=== PATIENT | male | born 1960 | race Two or more races ===

== ENCOUNTER 2022-07-11 07:20 | Inpatient (IN) | payer MEDICAID ==
[~2022-07-11] VITALS: Ht 177.8 cm; Wt 94.1 kg
[~2022-07-11 07:20] MED LIST: HYDR-4383 PO; ONDA8TAB9 PO
[2022-07-11 08:08] LABS: BASOPHILS % (AUTO) 0.2 % (0-1); EOSINOPHILS % (AUTO) 0 % (0-6); HEMATOCRIT 46.4 % (42.0-52.0); HEMOGLOBIN 15.9 g/dl (14.0-17.9); LYMPHOCYTES # (AUTO) 0.9 X10'3 (1.1-4.8); LYMPHOCYTES % (AUTO) 6.7 % (21-51); MEAN CORPUSCULAR HEMOGLOBIN 29.9 PG (27.0-31.0); MEAN CORPUSCULAR HGB CONC 34.4 g/dL (33.0-36.5); MEAN CORPUSCULAR VOLUME 86.8 FL (78-98); MEAN PLATELET VOLUME 6.4 FL (7.4-10.4); MONOCYTES # (AUTO) 0.7 X10'3 (0-0.9); NEUTROPHILS # (AUTO) 12.2 X10'3 (1.8-7.7); NEUTROPHILS % (AUTO) 88.1 % (42-75); PLATELET COUNT 186 X10'3 (140-440); RED BLOOD COUNT 5.34 X10'6 (4.70-6.10); RED CELL DISTRIBUTION WIDTH 13.3 % (11.5-14.5); WHITE BLOOD COUNT 13.8 X10'3 (4.5-11.0)
[2022-07-11 08:20] LABS: ALANINE AMINOTRANSFERASE 23 U/L (12-78); ALKALINE PHOSPHATASE 91 IU/L (46-116); ANION GAP 8 (8-16); ASPARTATE AMINO TRANSFERASE 24 U/L (10-37); BILIRUBIN,TOTAL 0.6 MG/DL (0.1-1.0); BLOOD UREA NITROGEN 17 MG/DL (7-18); BUN/CREATININE RATIO 16.8 (5.4-32.0); CALCIUM 8.7 MG/DL (8.5-10.1); CHLORIDE 105 MMOL/L (99-107); CREATININE 1.01 MG/DL (0.60-1.10); GLUCOSE 135 MG/DL (70-104); LIPASE 198 U/L (73-393); POTASSIUM 3.7 MMOL/L (3.5-5.1); SODIUM 136 MMOL/L (135-145); TOTAL CARBON DIOXIDE 22.6 MMOL/L (24-32); TOTAL PROTEIN 7.9 G/DL (6.4-8.2); eGFR 75 ML/MIN
[2022-07-11 13:03] LABS: CLARITY,URINE CLEAR (Clear); GLUCOSE, URINE NEGATIVE (Neg); KETONES,URINE 40 mg/dl (Neg); LEUKOCYTE ESTERASE ,URINE NEGATIVE (Neg); NITRITES, URINE NEGATIVE (Neg); OCCULT BLOOD,URINE MODERATE (Neg); PROTEIN,URINE NEGATIVE (Neg); UROBILINOGEN,URINE 0.2 E.U/dL (0.2-1.0)
[2022-07-11 13:17] LABS: COLOR,URINE DARK YELLOW (Yellow); UA COLLECTION TYPE CLN CATCH MIDSTREAM
[2022-07-11 13:24] LABS: BACTERIA,URINE NONE SEEN /HPF (Neg); MUCUS STRANDS MANY /LPF (Neg); RBC,URINE 0-2 /HPF (0-2); SPERM FEW /HPF (NEGATIVE); SQUAMOUS EPITHELIAL CELL,UR FEW /LPF (FEW); WBC,URINE 0-4 /HPF (0-4)
[2022-07-11] MEDS ORDERED: morphine 4 MG/ML inj SYRINge IV PRN (18:00)
[2022-07-11] MEDS ORDERED: normal saline 1000ML IV soln IVB ONE (18:00)
[2022-07-11] MEDS ORDERED: ondansetron/PF 4mg/2ml inj IV ONE (18:00)
[2022-07-11] MEDS ORDERED: piperacillin/tazo 3.375gm/50ml 50 ML IV ONE (18:10)
[2022-07-11] MEDS ORDERED: temazepam 15mg capsule PO PRN (21:00)
--- NOTE | 2022-07-11 21:27 | NUR ---
ULTRASOUND PAGED AT [phone]
[2022-07-11] MEDS ORDERED: ondansetron/PF 4mg/2ml inj IV PRN (22:20)
[2022-07-11] MEDS ORDERED: magnesium hydroxide 30ml (MOM) UD suspension PO PRN (22:20)
[2022-07-11] MEDS ORDERED: potassium Cl 20 mEq SR tablet PO PRN ×2 (22:20)
[2022-07-11] MEDS ORDERED: bisacodyl 10mg suppository rectal RC PRN (22:20)
[2022-07-11] MEDS ORDERED: HYDROcodone/acetaminophen 5mg/325mg tablet PO PRN (22:20)
[2022-07-11] MEDS ORDERED: acetaminophen 325mg tablet PO PRN ×2 (22:20)
[2022-07-11] MEDS ORDERED: potassium Cl 40MEQ/1/2NS 520ml 520 ML IV PRN (22:20)
[2022-07-11] MEDS ORDERED: HYDROmorphone inj. 0.5 MG/0.5 ML DISP.SYRIN IV PRN (22:20)
[2022-07-11] MEDS ORDERED: ondansetron 4mg rapidly disintigrating tab PO PRN (22:20)
[2022-07-11] MEDS ORDERED: diphenhydrAMINE 50 mg/ml inj IV PRN (22:20)
[2022-07-11] MEDS ORDERED: mag hydrox/Alum hydrox/simeth 30ml oral suspension PO PRN (22:20)
[2022-07-11] MEDS ORDERED: morphine 2 MG/ML inj. syringe IV PRN ×2 (22:20)
[2022-07-11] MEDS ORDERED: acetaminophen 650mg rectal suppository RC PRN (22:20)
[2022-07-11] MEDS ORDERED: diphenhydrAMINE 25mg capsule PO PRN (22:20)
[2022-07-11 22:58] LABS: APTT 31 SECONDS (22-32)
[2022-07-11 23:05] LABS: PHOSPHORUS 2.1 MG/DL (2.3-4.5)
[2022-07-12] VITALS (15 sets, daily range): BP systolic 112–156; BP diastolic 60–87
[2022-07-12] MEDS: potassium Cl 20mEq in NS 1,000 ML IV SCH ×3 (01:16→18:20)
[2022-07-12] MEDS: piperacillin/tazo 3.375gm/50ml 50 ML IV SCH ×3 (02:35→18:00)
--- NOTE | 2022-07-12 05:19 | NUR ---
Daughter contact info : Alana
--- NOTE | 2022-07-12 06:45 | NUR ---
Received patient to room 344A. Patient is alert and oriented x4 with c/o pain 8/10 to right abd. Oriented patient to room and call light. Call light placed within patient's reach.
[2022-07-12] MEDS: HYDROcodone/acetaminophen 10/325mg tab PO PRN (06:49)
[2022-07-12] MEDS: K and/or MAG REPLACEMENT MC SCH ×2 (08:00→20:00)
[2022-07-12 08:51] LABS: HEMATOCRIT 41.1 % (42.0-52.0); HEMOGLOBIN 14.1 g/dl (14.0-17.9); LYMPHOCYTES % (AUTO) 4.3 % (21-51); MEAN CORPUSCULAR HEMOGLOBIN 29.7 PG (27.0-31.0); MEAN CORPUSCULAR HGB CONC 34.4 g/dL (33.0-36.5); MEAN CORPUSCULAR VOLUME 86.4 FL (78-98); MEAN PLATELET VOLUME 6.9 FL (7.4-10.4); MONOCYTES % (AUTO) 8.5 % (2-12); NEUTROPHILS % (AUTO) 87.1 % (42-75); PLATELET COUNT 149 X10'3 (140-440); RED BLOOD COUNT 4.76 X10'6 (4.70-6.10); RED CELL DISTRIBUTION WIDTH 13.4 % (11.5-14.5); WHITE BLOOD COUNT 18.4 X10'3 (4.5-11.0)
[2022-07-12 08:52] LABS: BASOPHILS % (AUTO) 0.1 % (0-1); EOSINOPHILS % (AUTO) 0 % (0-6); LYMPHOCYTES # (AUTO) 0.8 X10'3 (1.1-4.8); MONOCYTES # (AUTO) 1.6 X10'3 (0-0.9)
[2022-07-12 08:54] LABS: ALANINE AMINOTRANSFERASE 38 U/L (12-78); ALBUMIN 3.1 G/DL (3.4-5.0); ALBUMIN/GLOBULIN RATIO 0.8 (1.1-1.5); ALKALINE PHOSPHATASE 75 IU/L (46-116); ANION GAP 9 (8-16); ASPARTATE AMINO TRANSFERASE 27 U/L (10-37); BILIRUBIN,TOTAL 1.7 MG/DL (0.1-1.0); BLOOD UREA NITROGEN 15 MG/DL (7-18); BUN/CREATININE RATIO 13.5 (5.4-32.0); CHLORIDE 107 MMOL/L (99-107); CREATININE 1.11 MG/DL (0.60-1.10); GLUCOSE 124 MG/DL (70-104); POTASSIUM 3.3 MMOL/L (3.5-5.1); SODIUM 139 MMOL/L (135-145); TOTAL CARBON DIOXIDE 23.3 MMOL/L (24-32); TOTAL PROTEIN 6.8 G/DL (6.4-8.2); eGFR 67 ML/MIN
[2022-07-12] MEDS: pantoprazole 40MG/NS 100ML BAG 100 ML IV SCH (09:05)
[2022-07-12] MEDS: docusate sod 100mg capsule PO SCH ×2 (09:07→20:00)
[2022-07-12 09:17] LABS: CALCIUM 8.1 MG/DL (8.5-10.1)
[2022-07-12] MEDS: HYDROmorphone inj. 0.5 MG/0.5 ML DISP.SYRIN IV PRN ×2 (13:29→17:06)
--- NOTE | 2022-07-12 14:25 | NUR ---
Jailyn with the OR called and is aware of patients EKG Normal Sinus w/ non specific IVCD with LAD per Jailyn Demarco is ok with that. They will also be putting in a Covid test. Santos powell RN aware.
[2022-07-12] MEDS ORDERED: ZOLP10TA PO (14:26)
[2022-07-12] MEDS ORDERED: ALPR1TAB7 PO (14:26)
[2022-07-12] MEDS ORDERED: CELE-85 PO (14:26)
[2022-07-12] MEDS ORDERED: HYDR-3972 PO (14:26)
[2022-07-12] MEDS ORDERED: VERA240T92 PO (14:26)
[2022-07-12] MEDS ORDERED: SUMA100T16 PO (14:26)
--- NOTE | 2022-07-12 17:30 | NUR ---
patient down to OR
--- NOTE | 2022-07-12 18:05 | NUR ---
Patient in room [facility] 344. I have received report from ADAN Graham and had the opportunity to ask questions and assume patient care.
--- NOTE | 2022-07-12 18:21 | NUR ---
Problems reprioritized. Patient report given, questions answered & plan of care reviewed with ADAN Castillo. Anna aware patient 1800 zosyn not administered due to patient in OR and will administer when return to floor.
[2022-07-12] MEDS ORDERED: BUPIVAcaine 0.5% inj/PF 30 ML ONE (18:32)
[2022-07-12] MEDS ORDERED: morphine 4 MG/ML inj SYRINge IM ONE (18:35)
[2022-07-12] MEDS ORDERED: morphine 4 MG/ML inj SYRINge IV ONE ×2 (18:45→19:35)
[2022-07-12] MEDS ORDERED: sevoflurane 250ml liquid IH ONE (19:51)
[2022-07-12] MEDS ORDERED: midazolam 1 mg/ML 2ml injection ONE (19:55)
[2022-07-12] MEDS ORDERED: proCHLORperazine 10 MG/2 ml inj IV PRN (20:15)
[2022-07-12] MEDS ORDERED: morphine 2 MG/ML inj. syringe IV PRN (20:15)
[2022-07-12] MEDS ORDERED: ondansetron/PF 4mg/2ml inj IV PRN (20:15)
[2022-07-12] MEDS ORDERED: ketorolac tromethamine 15mg/ml inj. IV ONE (20:15)
[2022-07-12] MEDS ORDERED: labetalol 20mg/4ml (5mg/ml) syringe IV PRN (20:15)
[2022-07-12] MEDS ORDERED: ringers solution, lacted 1,000 ML IV SCH (20:15)
[2022-07-12] MEDS ORDERED: meperidine/PF 25mg/ml syringe IV PRN ×3 (20:15)
[2022-07-12] MEDS ORDERED: morphine 4 MG/ML inj SYRINge IV PRN (20:15)
[2022-07-12] MEDS ORDERED: hydrALAZINE 20mg/ml inj. IV PRN (20:15)
[2022-07-12] MEDS ORDERED: acetaminophen 1,000mg/100ml IV 100 ML IV PRN (20:15)
[2022-07-12] MEDS ORDERED: LIDOcaine 2% (20mg/ml) 5ml vial ONE (20:18)
[2022-07-12] MEDS ORDERED: propofol inj 20 ML IV ONE (20:18)
[2022-07-12] MEDS ORDERED: dexamethasone sod phosphate 4mg/ml inj. ONE (20:18)
[2022-07-12] MEDS ORDERED: fentaNYL /PF 50mcg/ml 5ml ampule ONE (20:18)
[2022-07-12] MEDS ORDERED: rocuronium 10mg/ml inj IV ONE (20:18)
[2022-07-12] MEDS ORDERED: ondansetron/PF 4mg/2ml inj ONE (20:19)
[2022-07-12] MEDS ORDERED: ceFOXitin 1000 MG inj ONE ×2 (20:19)
[2022-07-12] MEDS ORDERED: naloxone 0.4 mg/ml inj IV PRN (21:05)
[2022-07-12] MEDS ORDERED: glycopyrrolate 0.2mg/ml inj ONE (21:09)
[2022-07-12] MEDS ORDERED: neostigmine methylsulfate 1 MG/ML 10ml vial ONE (21:09)
--- NOTE | 2022-07-12 21:17 | NUR ---
Received from OR via bed, accompanied by Anesthesiologist and report given by PEGGY Anesthesiologist. PATIENT A&OX4, DENIES PAIN, V/S WNL, SCD ON , PIV 18G RFA, BANDAID LAPS SITES CLOSED C/D/I TO ABDOMEN WITH SEROSANGUINEOUS JACEK DRAINAGE. Addendum: 07/12/22 at 2155 by Darinel Rosado RN Amended: Links added.
--- NOTE | 2022-07-12 21:30 | NUR ---
Patient in room [facility] 344. I have received report from ADAN Dunaway and had the opportunity to ask questions and assume patient care.
--- NOTE | 2022-07-12 21:45 | NUR ---
pt arrived back from surgery in hospital bed. post op vitals started. pt resting.
--- NOTE | 2022-07-12 21:47 | NUR ---
PATIENT HAS MET ALL CRITERIA FOR TRANSFER TO THE SURGICAL FLOOR. VSS. DRESSINGS INTACT. BED LOW, CALL LIGHT PRESENT AND 2 RAILS UP. RN PRESENT TO ACCEPT CARE OF PATIENT AND REPORT HAS BEEN CALLED. ALL QUESTIONS ANSWERED TO ACCEPTING RN. Addendum: 07/12/22 at 2155 by Darinel Rosado RN Amended: Links added.
[2022-07-13] VITALS (7 sets, daily range): BP systolic 114–135; BP diastolic 62–85
[2022-07-13] MEDS: potassium CL 20mEq in D5-1/2NS 1,000 ML IV SCH ×4 (00:10→07:18)
[2022-07-13] MEDS: piperacillin/tazo 3.375gm/50ml 50 ML IV SCH ×3 (02:16→17:52)
[2022-07-13] MEDS: potassium Cl 20mEq in NS 1,000 ML IV SCH ×2 (04:20→14:20)
[2022-07-13] MEDS: HYDROcodone/acetaminophen 10/325mg tab PO PRN ×4 (05:01→19:47)
[2022-07-13 05:50] LABS: BASOPHILS % (AUTO) 0.1 % (0-1); EOSINOPHILS % (AUTO) 0 % (0-6); HEMATOCRIT 41.8 % (42.0-52.0); HEMOGLOBIN 14.3 g/dl (14.0-17.9); LYMPHOCYTES # (AUTO) 0.6 X10'3 (1.1-4.8); LYMPHOCYTES % (AUTO) 3.1 % (21-51); MEAN CORPUSCULAR HGB CONC 34.1 g/dL (33.0-36.5); MEAN CORPUSCULAR VOLUME 87.7 FL (78-98); MEAN PLATELET VOLUME 6.8 FL (7.4-10.4); MONOCYTES # (AUTO) 0.9 X10'3 (0-0.9); MONOCYTES % (AUTO) 4.9 % (2-12); NEUTROPHILS # (AUTO) 16.9 X10'3 (1.8-7.7); NEUTROPHILS % (AUTO) 91.9 % (42-75); PLATELET COUNT 126 X10'3 (140-440); RED BLOOD COUNT 4.76 X10'6 (4.70-6.10); RED CELL DISTRIBUTION WIDTH 13.5 % (11.5-14.5); WHITE BLOOD COUNT 18.5 X10'3 (4.5-11.0)
--- NOTE | 2022-07-13 06:19 | NUR ---
Problems reprioritized. Patient report given, questions answered & plan of care reviewed with ADAN Graham.
[2022-07-13 06:20] LABS: ALANINE AMINOTRANSFERASE 50 U/L (12-78); ALBUMIN 2.6 G/DL (3.4-5.0); ALBUMIN/GLOBULIN RATIO 0.7 (1.1-1.5); ALKALINE PHOSPHATASE 70 IU/L (46-116); ANION GAP 6 (8-16); ASPARTATE AMINO TRANSFERASE 37 U/L (10-37); BILIRUBIN,TOTAL 1.1 MG/DL (0.1-1.0); BLOOD UREA NITROGEN 17 MG/DL (7-18); BUN/CREATININE RATIO 14.7 (5.4-32.0); CALCIUM 8.1 MG/DL (8.5-10.1); CHLORIDE 108 MMOL/L (99-107); CREATININE 1.16 MG/DL (0.60-1.10); GLUCOSE 191 MG/DL (70-104); POTASSIUM 4.2 MMOL/L (3.5-5.1); SODIUM 137 MMOL/L (135-145); TOTAL CARBON DIOXIDE 23.1 MMOL/L (24-32); TOTAL PROTEIN 6.4 G/DL (6.4-8.2); eGFR 64 ML/MIN
--- NOTE | 2022-07-13 06:31 | NUR ---
Patient in room [facility] 344. I have received report from ADAN ALDANA and had the opportunity to ask questions and assume patient care.
[2022-07-13] MEDS: docusate sod 100mg capsule PO SCH ×2 (07:18→19:47)
[2022-07-13] MEDS: HYDROmorphone inj. 0.5 MG/0.5 ML DISP.SYRIN IV PRN (07:18)
[2022-07-13] MEDS: pantoprazole 40MG/NS 100ML BAG 100 ML IV SCH (07:18)
[2022-07-13] MEDS: K and/or MAG REPLACEMENT MC SCH ×2 (08:00→19:40)
[2022-07-13] MEDS ORDERED: AMOX-117 PO (14:00)
--- NOTE | 2022-07-13 18:05 | NUR ---
Patient in room [facility] 344. I have received report from ADAN Graham and had the opportunity to ask questions and assume patient care.
--- NOTE | 2022-07-13 18:13 | NUR ---
Problems reprioritized. Patient report given, questions answered & plan of care reviewed with ADAN Castillo.
[2022-07-13] MEDS ORDERED: zolpidem 5mg tablet PO PRN (18:35)
[2022-07-13] MEDS ORDERED: SUMAtriptan 25 MG tablet PO PRN (18:35)
[2022-07-13] MEDS ORDERED: HYDROcodone/acetaminophen 10/325mg tab PO PRN (18:35)
[2022-07-13] MEDS ORDERED: non-formulary drug (Alprazolam 1 TAB) PO SCH (20:00)
[2022-07-13] MEDS: verapamil tablet 120 MG TABLET PO SCH (21:29)
[2022-07-14] MEDS: potassium Cl 20mEq in NS 1,000 ML IV SCH ×3 (00:20→20:20)
[2022-07-14] MEDS: piperacillin/tazo 3.375gm/50ml 50 ML IV SCH ×3 (02:33→17:21)
[2022-07-14] MEDS: potassium CL 20mEq in D5-1/2NS 1,000 ML IV SCH ×2 (05:05→13:05)
--- NOTE | 2022-07-14 06:29 | NUR ---
Problems reprioritized. Patient report given, questions answered & plan of care reviewed with ADAN Graham.
[2022-07-14 06:51] VITALS: BP 124/68
[2022-07-14 07:10] LABS: ALANINE AMINOTRANSFERASE 46 U/L (12-78); ALBUMIN 2.5 G/DL (3.4-5.0); ALBUMIN/GLOBULIN RATIO 0.6 (1.1-1.5); ALKALINE PHOSPHATASE 76 IU/L (46-116); ANION GAP 9 (8-16); ASPARTATE AMINO TRANSFERASE 25 U/L (10-37); BILIRUBIN,TOTAL 0.8 MG/DL (0.1-1.0); BLOOD UREA NITROGEN 17 MG/DL (7-18); BUN/CREATININE RATIO 15.9 (5.4-32.0); CHLORIDE 105 MMOL/L (99-107); CREATININE 1.07 MG/DL (0.60-1.10); GLUCOSE 117 MG/DL (70-104); POTASSIUM 3.7 MMOL/L (3.5-5.1); SODIUM 137 MMOL/L (135-145); TOTAL PROTEIN 6.5 G/DL (6.4-8.2); eGFR 70 ML/MIN
[2022-07-14 07:11] LABS: BASOPHILS % (AUTO) 0.1 % (0-1); EOSINOPHILS % (AUTO) 0.1 % (0-6); HEMATOCRIT 38.2 % (42.0-52.0); HEMOGLOBIN 13.3 g/dl (14.0-17.9); LYMPHOCYTES % (AUTO) 6.2 % (21-51); MEAN CORPUSCULAR HEMOGLOBIN 30.5 PG (27.0-31.0); MEAN CORPUSCULAR HGB CONC 34.8 g/dL (33.0-36.5); MEAN CORPUSCULAR VOLUME 87.5 FL (78-98); MEAN PLATELET VOLUME 7.4 FL (7.4-10.4); MONOCYTES # (AUTO) 1.2 X10'3 (0-0.9); NEUTROPHILS # (AUTO) 14.2 X10'3 (1.8-7.7); NEUTROPHILS % (AUTO) 86.6 % (42-75); PLATELET COUNT 166 X10'3 (140-440); RED BLOOD COUNT 4.37 X10'6 (4.70-6.10); RED CELL DISTRIBUTION WIDTH 13.3 % (11.5-14.5); WHITE BLOOD COUNT 16.4 X10'3 (4.5-11.0)
--- NOTE | 2022-07-14 07:34 | NUR ---
JOSE ENRIQUEd JACEK DRAIN PER MD ORDER. PT TOLERATED WELL.
[2022-07-14] MEDS: celeCOXIB 100mg capsule PO SCH (07:56)
[2022-07-14] MEDS: docusate sod 100mg capsule PO SCH ×2 (07:57→20:33)
[2022-07-14] MEDS: HYDROcodone/acetaminophen 10/325mg tab PO PRN ×2 (07:57→17:21)
[2022-07-14] MEDS: pantoprazole 40MG/NS 100ML BAG 100 ML IV SCH (07:57)
[2022-07-14] MEDS: K and/or MAG REPLACEMENT MC SCH ×2 (08:00→20:00)
[2022-07-14] MEDS: verapamil tablet 120 MG TABLET PO SCH ×2 (10:11→20:33)
--- NOTE | 2022-07-14 11:05 | NUR ---
PAGER ID: [phone] MESSAGE: [id number]- Giles Stevens- home tomorrow per Dr. Guardado. - [facility] [place] [address]
[2022-07-14 12:31] VITALS: BP 130/74
[2022-07-14 18:00] VITALS: BP 122/65
--- NOTE | 2022-07-14 18:53 | NUR ---
Patient in room [facility] 344. I have received report from ADAN Graham and had the opportunity to ask questions and assume patient care.
[2022-07-14 22:00] VITALS: BP 133/74
[2022-07-15] MEDS: piperacillin/tazo 3.375gm/50ml 50 ML IV SCH ×2 (01:52→10:03)
[2022-07-15 06:14] LABS: BASOPHILS % (AUTO) 0.3 % (0-1); EOSINOPHILS # (AUTO) 0.1 X10'3 (0-0.9); EOSINOPHILS % (AUTO) 1.5 % (0-6); HEMATOCRIT 35.9 % (42.0-52.0); HEMOGLOBIN 12.5 g/dl (14.0-17.9); LYMPHOCYTES # (AUTO) 0.8 X10'3 (1.1-4.8); LYMPHOCYTES % (AUTO) 12.1 % (21-51); MEAN CORPUSCULAR HEMOGLOBIN 30.5 PG (27.0-31.0); MEAN CORPUSCULAR HGB CONC 34.8 g/dL (33.0-36.5); MEAN CORPUSCULAR VOLUME 87.7 FL (78-98); MEAN PLATELET VOLUME 7.4 FL (7.4-10.4); MONOCYTES # (AUTO) 0.7 X10'3 (0-0.9); MONOCYTES % (AUTO) 10.6 % (2-12); NEUTROPHILS # (AUTO) 4.9 X10'3 (1.8-7.7); NEUTROPHILS % (AUTO) 75.5 % (42-75); PLATELET COUNT 157 X10'3 (140-440); RED BLOOD COUNT 4.09 X10'6 (4.70-6.10); RED CELL DISTRIBUTION WIDTH 13.4 % (11.5-14.5); WHITE BLOOD COUNT 6.5 X10'3 (4.5-11.0)
[2022-07-15 06:31] LABS: ALANINE AMINOTRANSFERASE 49 U/L (12-78); ALBUMIN 2.2 G/DL (3.4-5.0); ALBUMIN/GLOBULIN RATIO 0.6 (1.1-1.5); ALKALINE PHOSPHATASE 65 IU/L (46-116); ANION GAP 8 (8-16); ASPARTATE AMINO TRANSFERASE 24 U/L (10-37); BILIRUBIN,TOTAL 0.6 MG/DL (0.1-1.0); BLOOD UREA NITROGEN 14 MG/DL (7-18); BUN/CREATININE RATIO 14.4 (5.4-32.0); CALCIUM 7.9 MG/DL (8.5-10.1); CHLORIDE 107 MMOL/L (99-107); CREATININE 0.97 MG/DL (0.60-1.10); GLUCOSE 102 MG/DL (70-104); POTASSIUM 3.8 MMOL/L (3.5-5.1); SODIUM 139 MMOL/L (135-145); TOTAL CARBON DIOXIDE 23.9 MMOL/L (24-32); eGFR 79 ML/MIN
--- NOTE | 2022-07-15 06:37 | NUR ---
Problems reprioritized. Patient report given, questions answered & plan of care reviewed with ADAN Stark.
[2022-07-15 07:26] VITALS: BP 146/75
[2022-07-15] MEDS: K and/or MAG REPLACEMENT MC SCH (08:00)
[2022-07-15] MEDS: pantoprazole 40MG/NS 100ML BAG 100 ML IV SCH (08:07)
[2022-07-15] MEDS: celeCOXIB 100mg capsule PO SCH (08:07)
[2022-07-15] MEDS: docusate sod 100mg capsule PO SCH (08:07)
[2022-07-15] MEDS: potassium CL 20mEq in D5-1/2NS 1,000 ML IV SCH ×2 (08:08→08:10)
[2022-07-15] MEDS: verapamil tablet 120 MG TABLET PO SCH (08:08)
[2022-07-15] MEDS: potassium Cl 20mEq in NS 1,000 ML IV SCH (08:09)
[2022-07-15] MEDS: HYDROcodone/acetaminophen 10/325mg tab PO PRN (10:08)
[2022-07-15 10:10] VITALS: BP 141/73
--- NOTE | 2022-07-15 12:51 | NUR ---
Pt discharge today at 12:10. all vital signs stable. bp 133/70 h70 t 97.3 r 1. left the hospital with wheelchair. pt took all his belongings.
== END 2022-07-15 12:30 | disposition home or self-care (01) | DRG 263 ==
LOC: ER 07:20 → ED HOLD 22:25 → EDBEDREQ 07-12 05:08 → SUR 3N 07-12 06:42
PROVIDERS: ADMIT Family Medicine; ATTEND Family Medicine
PROC: 0FT44ZZ Resection of Gallbladder, Percutaneous Endoscopic Approach (ICD-10-PCS; principal; 2022-07-12 19:51)
DX: K80.00 Calculus of gallbladder with acute cholecystitis without obstruction (principal); D72.829 Elevated white blood cell count, unspecified; E86.0 Dehydration; K57.30 Diverticulosis of large intestine without perforation or abscess without bleeding; Z20.822 Contact with and (suspected) exposure to COVID-19; M54.9 Dorsalgia, unspecified; R73.9 Hyperglycemia, unspecified; R82.4 Acetonuria; G89.4 Chronic pain syndrome; I10 Essential (primary) hypertension; K44.9 Diaphragmatic hernia without obstruction or gangrene; Z79.891 Long term (current) use of opiate analgesic; Z87.442 Personal history of urinary calculi; Z79.899 Other long term (current) drug therapy
CPT/HCPCS: 36415; 74176; 76700; 80053; 81001; 82948; 83605; 83690; 83735; 83880; 84100; 85025; 85610; 85730; 87040; 87811; 93005; 96361; 96365; 96375; 99285; A4215; A4615; A4618; A6402; A7000; C9113; G0378; J0694; J1100; J1170; J2175; J2250; J2270; J2405; J2543; J2704; J2710; J3010; J3480; J3490; J7030; J7040; J7120; S0020

== ENCOUNTER 2024-05-27 15:34 | Outpatient (CLI) | payer MEDICAID ==
[~2024-05-27 15:34] MED LIST changes: +ALPR1TAB7 PO; +CELE-127 PO; +HYDR-3972 PO; -HYDR-4383 PO; -ONDA8TAB9 PO; +SUMA100T16 PO; +VERA240T92 PO; +ZOLP10TA PO
[2024-05-27 16:05] LABS: BASOPHILS % (AUTO) 0.5 % (0-1); EOSINOPHILS % (AUTO) 0.3 % (0-6); HEMATOCRIT 45.3 % (42.0-52.0); HEMOGLOBIN 15.4 g/dl (14.0-17.9); LYMPHOCYTES # (AUTO) 1.1 X10'3 (1.1-4.8); LYMPHOCYTES % (AUTO) 16.6 % (21-51); MEAN CORPUSCULAR HEMOGLOBIN 30.2 PG (27.0-31.0); MEAN CORPUSCULAR VOLUME 88.7 FL (78-98); MEAN PLATELET VOLUME 6.4 FL (7.4-10.4); MONOCYTES # (AUTO) 0.4 X10'3 (0-0.9); MONOCYTES % (AUTO) 6.5 % (2-12); NEUTROPHILS # (AUTO) 4.9 X10'3 (1.8-7.7); NEUTROPHILS % (AUTO) 76.1 % (42-75); PLATELET COUNT 147 X10'3 (140-440); RED BLOOD COUNT 5.11 X10'6 (4.70-6.10); RED CELL DISTRIBUTION WIDTH 13.3 % (11.5-14.5); WHITE BLOOD COUNT 6.4 X10'3 (4.5-11.0)
[2024-05-27 16:23] LABS: ALANINE AMINOTRANSFERASE 22 U/L (12-78); ALBUMIN 3.8 G/DL (3.4-5.0); ALBUMIN/GLOBULIN RATIO 1.1 (1.1-1.5); ALKALINE PHOSPHATASE 92 IU/L (46-116); ANION GAP 7 (8-16); ASPARTATE AMINO TRANSFERASE 14 U/L (10-37); BILIRUBIN,TOTAL 0.7 MG/DL (0.1-1.0); BLOOD UREA NITROGEN 14 MG/DL (7-18); BUN/CREATININE RATIO 14.4 (10.0-20.0); CALCIUM 8.8 MG/DL (8.5-10.1); CHLORIDE 107 MMOL/L (99-107); CREATININE 0.97 MG/DL (0.60-1.10); GLUCOSE 100 MG/DL (70-104); LIPASE 45 U/L (16-77); POTASSIUM 3.9 MMOL/L (3.5-5.1); SODIUM 142 MMOL/L (135-145); TOTAL CARBON DIOXIDE 28.3 MMOL/L (24-32); TOTAL PROTEIN 7.3 G/DL (6.4-8.2); eGFR 78 ML/MIN
[2024-05-29 09:57] LABS: HEP B CORE AB, TOT Negative (Negative); HEPATITIS C VIRUS ANTIBODY Non Reactive (Non Reactive)
== END 2024-05-27 23:59 | disposition home or self-care (01) ==
LOC: RAD 15:34
PROVIDERS: ATTEND Nurse Practitioner Family
DX: D69.6 Thrombocytopenia, unspecified (principal); R74.8 Abnormal levels of other serum enzymes
CPT/HCPCS: 36415; 80053; 83690; 85025; 86704; 86803; 87522; 87535; 87538

== ENCOUNTER 2025-01-02 08:37 | Inpatient (IN) | payer MEDICAID, OTHER ==
[~2025-01-02] VITALS: Ht 175.3 cm; Wt 94.0 kg
[~2025-01-02 08:37] MED LIST changes: +ZOLP-679 PO; -ZOLP10TA PO
--- NOTE | 2025-01-02 08:50 | ELECTROCARDIOGRAPH REPORT ---
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 Moses Price Measurements Intervals [place] Rate: 88 P: 53 VA: 200 QRS: -19 QRSD: 126 T: 34 QT: 390 QTc: 472 Interpretive Statements Sinus rhythm Nonspecific intraventricular conduction delay Electronically Signed On 01-02-2025 11:14:[address] Moses Price Please click the below link to view image of tracing.
[2025-01-02 09:37] LABS: BASOPHILS % (AUTO) 0.2 % (0-1); HEMATOCRIT 45.5 % (42.0-52.0); HEMOGLOBIN 15.8 g/dl (14.0-17.9); LYMPHOCYTES # (AUTO) 0.9 X10'3 (1.1-4.8); LYMPHOCYTES % (AUTO) 19.4 % (21-51); MEAN CORPUSCULAR HEMOGLOBIN 29.5 PG (27.0-31.0); MEAN CORPUSCULAR HGB CONC 34.7 g/dL (33.0-36.5); MEAN PLATELET VOLUME 6.6 FL (7.4-10.4); MONOCYTES # (AUTO) 0.4 X10'3 (0-0.9); MONOCYTES % (AUTO) 8.3 % (2-12); NEUTROPHILS # (AUTO) 3.3 X10'3 (1.8-7.7); NEUTROPHILS % (AUTO) 71.1 % (42-75); PLATELET COUNT 140 X10'3 (140-440); RED BLOOD COUNT 5.36 X10'6 (4.70-6.10); RED CELL DISTRIBUTION WIDTH 13.4 % (11.5-14.5); WHITE BLOOD COUNT 4.7 X10'3 (4.5-11.0)
[2025-01-02 09:59] LABS: ALBUMIN 3.5 G/DL (3.4-5.0); ANION GAP 11 (8-16); BLOOD UREA NITROGEN 12 MG/DL (7-18); BUN/CREATININE RATIO 11.9 (10.0-20.0); CALCIUM 8.6 MG/DL (8.5-10.1); CHLORIDE 109 MMOL/L (99-107); CREATININE 1.01 MG/DL (0.60-1.10); GLUCOSE 101 MG/DL (70-104); POTASSIUM 3.6 MMOL/L (3.5-5.1); PRO BRAIN NATRIURETIC PEPTIDE 81 PG/ML (0-125); SODIUM 145 MMOL/L (135-145); TOTAL CARBON DIOXIDE 25.3 MMOL/L (24-32); eCRCL 74 ML/MIN; eGFR 74 ML/MIN
[2025-01-02] MEDS: LORazepam 2 mg/ml vial IV ONE (10:01)
[2025-01-02] MEDS: normal saline 1000ml 1,000 ML IV ONE (10:01)
[2025-01-02] MEDS ORDERED: iohexol 300mg/ml 100ml inj. ONE (10:06)
[2025-01-02 10:11] LABS: APTT 26 SECONDS (22-32); INR 1.2 INR; PROTHROMBIN TIME 11.9 SECONDS (9.0-12.0)
[2025-01-02 10:14] LABS: BILIRUBIN,URINE NEGATIVE (Neg); CLARITY,URINE CLEAR (Clear); COLOR,URINE YELLOW (Yellow); GLUCOSE, URINE NEGATIVE (Neg); KETONES,URINE NEGATIVE (Neg); LEUKOCYTE ESTERASE ,URINE NEGATIVE (Neg); NITRITES, URINE NEGATIVE (Neg); OCCULT BLOOD,URINE MODERATE (Neg); PROTEIN,URINE NEGATIVE (Neg); UROBILINOGEN,URINE 0.2 E.U/dL (0.2-1.0)
[2025-01-02 10:20] LABS: UA COLLECTION TYPE CLN CATCH MIDSTREAM; WBC,URINE 0-4 /HPF (0-4)
[2025-01-02 10:21] LABS: BACTERIA,URINE NONE SEEN /HPF (Neg); MUCUS STRANDS NONE SEEN /LPF (Neg); SQUAMOUS EPITHELIAL CELL,UR FEW /LPF (FEW)
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
--- NOTE | 2025-01-02 10:30 | RADIOLOGY REPORT ---
EXAM: CT CT HEAD HISTORY: TRAUMA SYNCOPE COMPARISON: None TECHNIQUE: Axial images of the head were obtained and reformatted in coronal and sagittal planes. All CT scans at this medical facility are performed using dose modulation techniques as appropriate t o a performed exam including the following: Automated exposure control was utilized; adjustment of th e MA and/or KV according to patient size; and use of iterative reconstruction technique. CT Dose: CTDI volume is 61 mGy. Dose-length product is 1095 mGy*cm FINDINGS: There is no evidence of acute intracranial hemorrhage, mass, mass effect midline shift. There is no h ydrocephalus or extra-axial fluid collection. Smith-white matter differentiation is maintained. The visualized paranasal sinuses are clear. The calvarium is intact. IMPRESSION: 1. No acute intracranial process. HS:Y
[2025-01-02 10:41] LABS: CREATINE KINASE 96 U/L (39-308); LIPASE 62 U/L (16-77)
--- NOTE | 2025-01-02 10:42 | RADIOLOGY REPORT ---
EXAM: CT CT CERVICAL SPINE INDICATION: TRAUMA SYNCOPE EXAM DATE: 01/02/2025 10:13 AM COMPARISON: None TECHNIQUE: Multiple axial CT images of the cervical spine were obtained using bone algorithm. Sagitta l and coronal reformatting was done. Bone and soft tissue windows were reviewed. Radiation Dose Information: CT Dose: CTDI volume is 22.1 mGy. Dose-length product is 467 mGy*cm FINDINGS: The cervical alignment is intact. Straightening of the cervical lordosis. Sclerotic lesion in the lef t 1st rib, likely a bone island. No acute cervical spine fracture is identified. The vertebral body h eights are intact. No suspicious osseous lesions are identified. Multilevel facet arthropathy. No significant spinal stenosis or neural foraminal stenosis. There is no prevertebral soft tissue swelling. The lung apices are clear. IMPRESSION: 1. No evidence of acute cervical spine fracture or traumatic malalignment. All CT scans at this medical facility are performed using dose modulation techniques as appropriate t o a performed exam including the following: Automated exposure control was utilized; adjustment of th e MA and/or KV according to patient size; and use of iterative reconstruction technique.
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
[2025-01-02] MEDS ORDERED: mag hydrox/Alum hydrox/simeth 30ml oral suspension PO PRN (12:25)
[2025-01-02] MEDS ORDERED: magnesium sulf-water 4G/100mL 100 ML IV PRN (12:25)
[2025-01-02] MEDS ORDERED: magnesium sulf-water 2g/50mL 50 ML IV PRN (12:25)
[2025-01-02] MEDS ORDERED: morphine 2 MG/ML inj. syringe IV PRN (12:25)
[2025-01-02] MEDS ORDERED: magnesium Cl slow-release 64mg tablet PO PRN (12:25)
[2025-01-02] MEDS ORDERED: acetaminophen 325mg tablet PO PRN ×2 (12:25)
[2025-01-02] MEDS ORDERED: potassium Cl 40MEQ/1/2NS 520ml 520 ML IV PRN (12:25)
[2025-01-02] MEDS ORDERED: ondansetron/PF 4mg/2ml inj IV PRN (12:25)
[2025-01-02] MEDS ORDERED: potassium Cl 20 mEq SR tablet PO PRN ×2 (12:25)
[2025-01-02] MEDS: HYDROcodone/acetaminophen 5mg/325mg tablet PO PRN (13:11)
[2025-01-02] MEDS: normal saline 1000ml 1,000 ML IV SCH (13:11)
[2025-01-02 13:55] LABS: HEMOGLOBIN A1C 5.1 % (4.5-6.2)
[2025-01-02 14:33] LABS: MAGNESIUM 2.2 MG/DL (1.5-2.4)
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
--- NOTE | 2025-01-02 18:03 | CARDIOLOGY REPORT ---
APPROVED REPORT EXAM: Comprehensive 2D, Doppler, and color-flow Echocardiogram. 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 180.2 cm/s AoV VTI 36.1 cm AO Peak GR. 13.0 mmHg AO Mean GR. 6 mmHg LVOT VTI 26.14 cm LVOT Peak Ananth. 113.0 cm/s CARISSA(VTI)/BSA 3.01 cm2/m2 CARISSA (VTI) 3.01 cm2 AI P 1/2 Time 884 ms Mitral Valve MV E Velocity 84.5 cm/s MV Peak Gr. 3 mmHg MV DECEL TIME 244 ms MV A Velocity 100.9 cm/s MV PHT 84 ms E/A Ratio 0.8 MVA (PHT) 2.62 cm2 MV VMax82.8 cm/s TDI Lateral E' P. V14.83 cm/s E/Lateral E' 5.7 Tricuspid Valve TR P. Velocity 227 cm/s RAP ESTIMATE 10 mmHg TR Peak Gr. 21 mmHg RVSP 31 mmHg LEFT VENTRICLE Normal LV size and wall thickness. Overall systolic function is normal. LVEF is 70-75%. RIGHT VENTRICLE RV is normal size and function. ATRIA Left atrium is mildly dilated. AORTIC VALVE Trileaflet AV appears mildly sclerotic without stenosis. Mild insufficiency. MITRAL VALVE Mitral valve leaflets are mildly thickened with mild annular calcification. No stenosis. Trace regurg itation. TRICUSPID VALVE The tricuspid valve is normal in structure with trace regurgitation. PULMONIC VALVE The pulmonary valve is normal in structure with physiologic insufficiency. GREAT VESSELS The aortic root is normal in size. The ascending aorta is normal in size. The IVC is normal in size a nd collapses >50% with inspiration. PERICARDIUM Normal pericardium. No effusion. Other Information Study Quality: Adequate Conclusion Normal LV size and wall thickness. Overall systolic function is normal. LVEF is 70-75%. RV is normal size and function. Left atrium is mildly dilated. Trileaflet AV appears mildly sclerotic without stenosis. Mild insufficiency. Mitral valve leaflets are mildly thickened with mild annular calcification. No stenosis. Trace regu rgitation. The tricuspid valve is normal in structure with trace regurgitation. Normal pericardium. No effusion.
[2025-01-02] MEDS: K and/or MAG REPLACEMENT MC SCH (19:23)
[2025-01-02 20:00] VITALS: BP_SYST 156; BP_SYST 157; BP_DIAS 80; BP_DIAS 90; PULSE 58; PULSE 60; RESP 19; O2SAT 98
[2025-01-02] MEDS: heparin, porcine 5000 units/ml vial SQ SCH (20:49)
[2025-01-02] MEDS: zolpidem 5mg tablet PO ONE (21:54)
[2025-01-02] MEDS: ALPRAZolam 0.5mg tablet PO ONE (21:54)
[2025-01-02 22:00] VITALS: BP 150/87; PULSE 62; RESP 19; TEMP 97.5; O2SAT 98
[2025-01-02 22:33] LABS: BILIRUBIN,URINE NEGATIVE (Neg); CLARITY,URINE CLEAR (Clear); COLOR,URINE YELLOW (Yellow); GLUCOSE, URINE NEGATIVE (Neg); KETONES,URINE NEGATIVE (Neg); LEUKOCYTE ESTERASE ,URINE NEGATIVE (Neg); NITRITES, URINE NEGATIVE (Neg); OCCULT BLOOD,URINE SMALL (Neg); PROTEIN,URINE NEGATIVE (Neg); UROBILINOGEN,URINE 0.2 E.U/dL (0.2-1.0)
[2025-01-02 22:37] LABS: UA COLLECTION TYPE CLN CATCH MIDSTREAM
[2025-01-02 22:47] LABS: BACTERIA,URINE NONE SEEN /HPF (Neg); RBC,URINE 0-2 /HPF (0-2); SQUAMOUS EPITHELIAL CELL,UR FEW /LPF (FEW); URINE AMPHETAMINE SCREEN NEGATIVE (Neg); URINE BARBITUATE SCREEN NEGATIVE (Neg); URINE BENZODIAZEPINES SCREEN POSITIVE (Neg); URINE CANNABINOID SCREEN NEGATIVE (Neg); URINE COCAINE SCREEN NEGATIVE (Neg); URINE METHADONE SCREEN NEGATIVE (Neg); URINE OPIATE SCREEN POSITIVE (Neg); URINE PHENCYCLIDINE SCREEN NEGATIVE (Neg); WBC,URINE NONE SEEN /HPF (0-4)
[2025-01-02 23:14] VITALS: RESP 18; O2SAT 65
[2025-01-03] VITALS (7 sets, daily range): BP systolic 125–160; BP diastolic 58–104; PULSE 53–73; RESP 16–19; TEMP 97–98.4; O2SAT 96–99
[2025-01-03] MEDS: HYDROcodone/acetaminophen 10/325mg tab PO PRN (03:28)
[2025-01-03 04:39] LABS: BASOPHILS % (AUTO) 0.4 % (0-1); EOSINOPHILS % (AUTO) 0.5 % (0-6); HEMATOCRIT 43.5 % (42.0-52.0); HEMOGLOBIN 15.2 g/dl (14.0-17.9); MEAN CORPUSCULAR HEMOGLOBIN 29.9 PG (27.0-31.0); MEAN CORPUSCULAR HGB CONC 34.9 g/dL (33.0-36.5); MEAN CORPUSCULAR VOLUME 85.6 FL (78-98); MEAN PLATELET VOLUME 6.8 FL (7.4-10.4); MONOCYTES # (AUTO) 0.6 X10'3 (0-0.9); MONOCYTES % (AUTO) 8.9 % (2-12); NEUTROPHILS # (AUTO) 5.2 X10'3 (1.8-7.7); NEUTROPHILS % (AUTO) 76.2 % (42-75); PLATELET COUNT 137 X10'3 (140-440); RED BLOOD COUNT 5.08 X10'6 (4.70-6.10); RED CELL DISTRIBUTION WIDTH 13.4 % (11.5-14.5); WHITE BLOOD COUNT 6.9 X10'3 (4.5-11.0)
[2025-01-03 04:46] LABS: INR 1.3 INR; PROTHROMBIN TIME 12.6 SECONDS (9.0-12.0)
[2025-01-03 04:49] LABS: ALANINE AMINOTRANSFERASE 23 U/L (12-78); ALBUMIN 3.3 G/DL (3.4-5.0); ALKALINE PHOSPHATASE 92 IU/L (46-116); ANION GAP 7 (8-16); ASPARTATE AMINO TRANSFERASE 19 U/L (10-37); BLOOD UREA NITROGEN 11 MG/DL (7-18); BUN/CREATININE RATIO 11.8 (10.0-20.0); CALCIUM 7.9 MG/DL (8.5-10.1); CHLORIDE 109 MMOL/L (99-107); CHOL/HDL RATIO 3.3 (0.00-4.99); CHOLESTEROL 134 MG/DL (0-200); CREATININE 0.93 MG/DL (0.60-1.10); GLUCOSE 101 MG/DL (70-104); HDL CHOLESTEROL 41 MG/DL (35-60); LDL CHOLESTEROL 80 MG/DL (50-100); MAGNESIUM 1.9 MG/DL (1.5-2.4); PHOSPHORUS 2.8 MG/DL (2.3-4.5); POTASSIUM 3.6 MMOL/L (3.5-5.1); SODIUM 143 MMOL/L (135-145); TOTAL PROTEIN 6.5 G/DL (6.4-8.2); TRIGLYCERIDES 68 MG/DL (20-135); eCRCL 80 ML/MIN; eGFR 82 ML/MIN
--- NOTE | 2025-01-03 09:17 | VASCULAR REPORT ---
Carotid Duplex Date: 01/03/2025 08:06 AM Clinical History: Syncope Comparison: None Technique: Duplex Doppler evaluation of the extracranial carotid and vertebral arteries including col or Doppler and spectral/pulsed waveform analysis was performed. Findings: RIGHT SIDE: The peak systolic velocities are 108 cm/s in the distal CCA and 63 cm/s in the proximal ICA.The ICA/C CA ratio is 0.8. The external carotid artery is patent with peak systolic velocity of 104 cm/s proximally. The subclavian artery measures 123 cm/sec. There is appropriate antegrade flow in the right vertebral artery. LEFT SIDE: The peak systolic velocities are 112 cm/s in the distal CCA and 72cm/s in the proximal ICA. The ICA /CCA ratio is 1. The external carotid artery is patent with peak systolic velocity of 73 cm/s proximally. There is appropriate antegrade flow in the left vertebral artery. The subclavian artery measures 124 cm/sec. IMPRESSION: No hemodynamically significant stenosis noted in the right carotid system. No hemodynamically significant stenosis noted in the left carotid system. Reference: Radiology 2003; 229:340-346
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
[2025-01-03] MEDS ORDERED: AMLO2.5T5 PO (17:30)
[2025-01-03] MEDS: ALPRAZolam 0.5mg tablet PO PRN ×2 (18:03→22:41)
--- NOTE | 2025-01-03 19:52 | RADIOLOGY REPORT ---
Indication: pain and swelling Technique: 3 views left wrist Comparison: None FINDINGS/IMPRESSION: Fracture distal radial metadiaphysis with intra-articular extension. Moderate to severe degenerate changes at the 1st carpometacarpal joint. Diffuse left wrist soft tissue edema.
[2025-01-04] VITALS (7 sets, daily range): BP systolic 118–159; BP diastolic 59–86; PULSE 48–60; RESP 16–21; TEMP 97–97.6; O2SAT 97–99
[2025-01-04] MEDS: zolpidem 5mg tablet PO PRN (01:57)
--- NOTE | 2025-01-04 02:44 | RADIOLOGY REPORT ---
PROCEDURE: MR MRI HEAD INDICATION: SYNCOPE EXAM DATE: 01/03/2025 11:51 PM COMPARISON: CT CT HEAD on DOS: 01/02/25 TECHNIQUE: MRI of the brain without intravenous contrast. FINDINGS: Diffusion weighted images of the brain demonstrate no evidence of acute infarction. There is no evidence of acute intracranial hemorrhage, extra-axial collection, mass effect, midline s hift, herniation or hydrocephalus. The ventricles, sulci and cisterns appear age appropriate. The signal intensities of the brain parenchyma are within normal limits. There are no signal abnormalities on the susceptibility weighted sequences. The major vascular flow voids are present. Slightly prominent vessel in the right anterior frontal lo be seen best on GRE sequence and postcontrast axial sequence measuring 0.3 cm possibly representing a small vascular malformation. The visualized paranasal sinuses and mastoid air cells are clear. The surrounding soft tissues and o sseous structures are unremarkable. IMPRESSION: No evidence of acute infarction, intracranial hemorrhage, mass effect or hydrocephalus. Possible 0.3 cm vascular malformation in the right anterior frontal lobe (image 23, series 12 and roverto ge 21, series 4).
[2025-01-04] MEDS: GADOTERATE MEGLUMINE 7.5 MMOL/15 ML VIAL IV ONE (03:05)
[2025-01-04 07:32] LABS: BASOPHILS % (AUTO) 0.4 % (0-1); EOSINOPHILS # (AUTO) 0.1 X10'3 (0-0.9); HEMATOCRIT 40.4 % (42.0-52.0); HEMOGLOBIN 14.3 g/dl (14.0-17.9); LYMPHOCYTES % (AUTO) 19.1 % (21-51); MEAN CORPUSCULAR HEMOGLOBIN 30.2 PG (27.0-31.0); MEAN CORPUSCULAR HGB CONC 35.5 g/dL (33.0-36.5); MEAN CORPUSCULAR VOLUME 85.1 FL (78-98); MEAN PLATELET VOLUME 6.7 FL (7.4-10.4); MONOCYTES # (AUTO) 0.7 X10'3 (0-0.9); MONOCYTES % (AUTO) 12.2 % (2-12); NEUTROPHILS # (AUTO) 3.6 X10'3 (1.8-7.7); NEUTROPHILS % (AUTO) 66.3 % (42-75); PLATELET COUNT 122 X10'3 (140-440); RED BLOOD COUNT 4.75 X10'6 (4.70-6.10); RED CELL DISTRIBUTION WIDTH 13.2 % (11.5-14.5); WHITE BLOOD COUNT 5.5 X10'3 (4.5-11.0)
[2025-01-04 07:55] LABS: ALANINE AMINOTRANSFERASE 22 U/L (12-78); ALBUMIN 3.1 G/DL (3.4-5.0); ALKALINE PHOSPHATASE 77 IU/L (46-116); ANION GAP 8 (8-16); ASPARTATE AMINO TRANSFERASE 22 U/L (10-37); BILIRUBIN,TOTAL 0.8 MG/DL (0.1-1.0); BLOOD UREA NITROGEN 11 MG/DL (7-18); BUN/CREATININE RATIO 11.1 (10.0-20.0); CHLORIDE 109 MMOL/L (99-107); CREATININE 0.99 MG/DL (0.60-1.10); GLUCOSE 95 MG/DL (70-104); PHOSPHORUS 2.9 MG/DL (2.3-4.5); POTASSIUM 3.7 MMOL/L (3.5-5.1); SODIUM 144 MMOL/L (135-145); TOTAL CARBON DIOXIDE 27.2 MMOL/L (24-32); TOTAL PROTEIN 6.3 G/DL (6.4-8.2); eCRCL 75 ML/MIN; eGFR 76 ML/MIN
[2025-01-04] MEDS: amLODIPine 2.5mg tablet PO SCH (08:18)
[2025-01-04] MEDS: celeCOXIB 100mg capsule PO SCH (08:18)
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
[2025-01-04] MEDS ORDERED: morphine 4 MG/ML inj SYRINge IV PRN (21:12)
[2025-01-05 02:00] VITALS: BP 147/78; PULSE 48; RESP 21; TEMP 97.5; O2SAT 97
[2025-01-05 06:00] VITALS: BP 130/79; PULSE 61; RESP 14; TEMP 98; O2SAT 98
[2025-01-05 06:33] LABS: BASOPHILS % (AUTO) 0.4 % (0-1); EOSINOPHILS # (AUTO) 0.1 X10'3 (0-0.9); EOSINOPHILS % (AUTO) 3.2 % (0-6); HEMATOCRIT 40.5 % (42.0-52.0); HEMOGLOBIN 14.1 g/dl (14.0-17.9); LYMPHOCYTES # (AUTO) 0.9 X10'3 (1.1-4.8); LYMPHOCYTES % (AUTO) 22.2 % (21-51); MEAN CORPUSCULAR HEMOGLOBIN 29.6 PG (27.0-31.0); MEAN CORPUSCULAR HGB CONC 34.8 g/dL (33.0-36.5); MEAN CORPUSCULAR VOLUME 85.3 FL (78-98); MEAN PLATELET VOLUME 6.7 FL (7.4-10.4); MONOCYTES # (AUTO) 0.5 X10'3 (0-0.9); MONOCYTES % (AUTO) 12.1 % (2-12); NEUTROPHILS # (AUTO) 2.6 X10'3 (1.8-7.7); NEUTROPHILS % (AUTO) 62.1 % (42-75); PLATELET COUNT 125 X10'3 (140-440); RED BLOOD COUNT 4.75 X10'6 (4.70-6.10); RED CELL DISTRIBUTION WIDTH 13.1 % (11.5-14.5); WHITE BLOOD COUNT 4.2 X10'3 (4.5-11.0)
[2025-01-05 07:15] LABS: ALANINE AMINOTRANSFERASE 20 U/L (12-78); ALBUMIN/GLOBULIN RATIO 0.9 (1.1-1.5); ALKALINE PHOSPHATASE 76 IU/L (46-116); ANION GAP 7 (8-16); ASPARTATE AMINO TRANSFERASE 22 U/L (10-37); BILIRUBIN,TOTAL 0.7 MG/DL (0.1-1.0); BLOOD UREA NITROGEN 10 MG/DL (7-18); BUN/CREATININE RATIO 11.5 (10.0-20.0); CALCIUM 7.9 MG/DL (8.5-10.1); CHLORIDE 109 MMOL/L (99-107); CREATININE 0.87 MG/DL (0.60-1.10); GLUCOSE 98 MG/DL (70-104); MAGNESIUM 1.9 MG/DL (1.5-2.4); PHOSPHORUS 2.8 MG/DL (2.3-4.5); POTASSIUM 3.5 MMOL/L (3.5-5.1); SODIUM 142 MMOL/L (135-145); TOTAL CARBON DIOXIDE 26.3 MMOL/L (24-32); TOTAL PROTEIN 6.2 G/DL (6.4-8.2); eCRCL 86 ML/MIN; eGFR 88 ML/MIN
[2025-01-05 08:00] VITALS: BP_SYST 157; BP_SYST 171; BP_DIAS 83; BP_DIAS 95; PULSE 68; PULSE 71; RESP 16; O2SAT 98
[2025-01-05] MEDS: polyethylene glycol 3350 17gm powd pack PO SCH (08:40)
[2025-01-05] MEDS ORDERED: bisacodyl 10mg suppository rectal RC PRN (08:40)
[2025-01-05 09:53] VITALS: BP_SYST 157; BP_SYST 171; BP_DIAS 83; BP_DIAS 95; PULSE 68; PULSE 71
--- NOTE | 2025-01-05 10:05 | PROCEDURE NOTE ---
Procedure Note Providers to CC ~ Interpretation: [place] EEG Note # Demographics Type of EEG Read: - Routine EEG - video Patient Location: Inpatient First Name: Giles Last Name: Rodney Date of : 1960 Age: 64 Gender: Male Facility: [facility] Time of Initial Page ([place] ): 01/05/2025 09:36 Time of Return Call ([place] Time): 01/05/2025 09:37 # EEG Interpretation Start Time of EEG Read ([place] ): 01/05/2025 09:57 Stop Time of EEG Read ([place] ): 01/05/2025 10:18 Duration: 0h 21m Technical Details: - The EEG electrodes were placed using the standard International 10-20 system of electrode placement. Video and an accessory EKG lead were used during the course of this study. Indication: - altered mental status # Description Photic Stimulation: NOT Performed Hyperventilation: NOT performed Phases Captured: - awake - drowsy Symmetry: symmetric Posterior Dominant Rhythm: absent Predominant Frequencies: beta (>15 Hz) Superimposed Frequencies: delta (2-3 Hz) Amplitude: normal Reactivity: yes Variability: yes Continuity: continuous EKG: bradycardia # Abnormalities Epileptiform Abnormalities: - NOT present Focal Slowing: no Seizure: - NOT present # Impression Impression: abnormal Diffuse Slowing Excess Beta # Clinical Correlation Clinical Correlation: Diffuse slowing is non-specific and may be seen in the setting of diffuse cerebral dysfunction; such as toxic/metabolic/infectious encephalopathy or heavily sedating medication use. Excess beta is a non-specific finding but may be seen in the setting of Benzodiazepine or Barbiturate use # Demographics First Name: Giles Last Name: Rodney Facility: [facility] NADIA MONTENEGRO MD Jan 05, 2025 10:05
[2025-01-05] MEDS ORDERED: LEVE500T PO (14:26)
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
== END 2025-01-05 16:05 | disposition home or self-care (01) | DRG 384 ==
LOC: ER 08:38 → ED HOLD 12:26 → PCU 3S 20:00
PROVIDERS: ADMIT Internal Medicine; ATTEND Internal Medicine
PROC: 4A00X4Z Measurement of Central Nervous Electrical Activity, External Approach (ICD-10-PCS; principal; 2025-01-05)
DX: S30.1XXA Contusion of abdominal wall, initial encounter (principal); F17.210 Nicotine dependence, cigarettes, uncomplicated; F41.9 Anxiety disorder, unspecified; S20.213A Contusion of bilateral front wall of thorax, initial encounter; I10 Essential (primary) hypertension; V89.2XXA Person injured in unspecified motor-vehicle accident, traffic, initial encounter; Y93.89 Activity, other specified; Y92.89 Other specified places as the place of occurrence of the external cause; Y99.8 Other external cause status; G89.29 Other chronic pain; G47.00 Insomnia, unspecified; Z90.49 Acquired absence of other specified parts of digestive tract; M54.50 Low back pain, unspecified
CPT/HCPCS: 36415; 70450; 70553; 71260; 72125; 72131; 73110; 74177; 80048; 80053; 80061; 80305; 81001; 82550; 83036; 83690; 83735; 83874; 83880; 84100; 84484; 85025; 85610; 85730; 87081; 93005; 93306; 93880; 95816; 96374; 97161; 97530; 99285; A6449; G0378; J1644; J2060; J7030; Q9967

== ENCOUNTER 2025-02-12 11:15 | Outpatient (CLI) | payer MEDICAID, OTHER ==
[~2025-02-12 11:15] MED LIST changes: +AMLO2.5T5 PO; +LEVE500T PO; -SUMA100T16 PO; -VERA240T92 PO
[2025-02-12 11:50] LABS: LEUKOCYTE ESTERASE ,URINE NEGATIVE (Neg); NITRITES, URINE NEGATIVE (Neg); OCCULT BLOOD,URINE SMALL (Neg)
[2025-02-12 11:54] LABS: UA COLLECTION TYPE CLN CATCH MIDSTREAM
[2025-02-12 11:56] LABS: MEAN PLATELET VOLUME 6.5 FL (7.4-10.4); RED CELL DISTRIBUTION WIDTH 13.5 % (11.5-14.5)
[2025-02-12 11:58] LABS: SQUAMOUS EPITHELIAL CELL,UR NONE SEEN /LPF (FEW)
[2025-02-12 13:00] LABS: CHOL/HDL RATIO 4.1 (0.00-4.99); CREATININE 0.89 MG/DL (0.60-1.10); LDL CHOLESTEROL 101 MG/DL (50-100); TOTAL CARBON DIOXIDE 23.3 MMOL/L (24-32); eGFR 86 ML/MIN
== END 2025-02-12 23:59 | disposition home or self-care (01) ==
LOC: LAB 11:15
PROVIDERS: ATTEND Nurse Practitioner Family
DX: Z00.01 Encounter for general adult medical examination with abnormal findings (principal); I10 Essential (primary) hypertension; R55 Syncope and collapse; F41.9 Anxiety disorder, unspecified; G47.00 Insomnia, unspecified; R53.83 Other fatigue; R35.1 Nocturia; E78.49 Other hyperlipidemia
CPT/HCPCS: 36415; 80053; 80061; 81001; 82607; 82746; 83036; 84425; 84439; 84443; 85025

== ENCOUNTER 2025-03-18 09:43 | Outpatient (CLI) | payer MEDICAID, OTHER ==
--- NOTE | 2025-03-18 19:35 | [facility] CONSULT REPORT ---
[facility] Procedure Note [facility] Procedure Note Consult [facility] Note # Demographics Type of EEG Read: - Routine EEG - video Patient Location: Outpatient First Name: Giles Last Name: Rodney Date of : 1960 Age: 64 Gender: Male Facility: [facility] Time of Initial Page (): 03/18/2025 10:40 First Contact with Site (): 03/18/2025 10:42 # EEG Interpretation Start Time of EEG Read (): 03/18/2025 10:14 Stop Time of EEG Read (): 03/18/2025 10:34 Duration: 0h 20m Technical Details: - The EEG electrodes were placed using the standard International 10-20 system of electrode placement. Video and an accessory EKG lead were used during the course of this study. - This study was recorded using the [email or web address] EEG software Indication: Possible seizure # Description Photic Stimulation: Performed Hyperventilation: performed Phases Captured: - awake Symmetry: symmetric Posterior Dominant Rhythm: The record is continuous, of normal amplitude and bilaterally symmetrical. There is a well-developed posterior dominant rhythm at 8-10 Hz. There is a moderate amount of diffuse low amplitude 15-25 Hz beta activity and an appropriate amount of 4-7 Hz theta activity during wakefulness. No significant <4 Hz delta activity is present during wakefulness. With drowsiness, there is attenuation of the background alpha activity and a shift to slower frequencies. Amplitude: normal Reactivity: yes Variability: yes Continuity: continuous EKG: NSR # Abnormalities Stimulation: - photic stimulation does NOT cause abnormalities - hyperventilation does NOT cause abnormalities Epileptiform Abnormalities: - NOT present Focal Slowing: no Seizure: - NOT present No push button events # Impression Impression: normal # Clinical Correlation Clinical Correlation: A normal EEG does not exclude nor support the diagnosis of epilepsy. Additional Comments: Clinical correlation is recommended # Demographics First Name: Giles Last Name: Rodney Facility: [facility] ROBIN MCKEON MD Mar 18, 2025 19:35
== END 2025-03-18 23:59 | disposition home or self-care (01) ==
LOC: RAD 09:43
PROVIDERS: ATTEND Nurse Practitioner Family
DX: R55 Syncope and collapse (principal)
CPT/HCPCS: 95816